=== PATIENT | female | born 1985 | race Caucasian/White ===

== ENCOUNTER 2017-05-14 11:54 | Emergency (ER) | payer MEDICAID, SELFPAY ==
[2017-05-14 12:07] VITALS: BP 113/85; PULSE 87; RESP 20; TEMP 36.3; O2SAT 99; BMI 37.5
[2017-05-14 12:11] LABS: UTC Pregnancy Test, Urine Negative (Negative)
[2017-05-14 12:11] LABS: Apearance,Urine Clear (Clear); Bilirubin,Urine Negative (Negative); Blood, Urine Negative (Negative); Color,Urine Yellow (Yellow); Glucose,Urine (UA) Negative (Negative); Ketones,Urine Negative (Negative); Protein,Urine Negative (Negative); Specific Gravity, Urine 1.005 (1.005-1.030); UTC Leukocyte Esterase,Urine 1+ (Negative); UTC Nitrate,Urine Negative (Negative); Urobilinogen,Urine 0.2 EU/dl (0.2)
--- NOTE | 2017-05-14 12:19 | XR_ITS ---
XR chest 2V HISTORY: Acute bronchitis, right-sided chest pain, pain when breathing ITS.REASON: PAIN WHEN BREATHING ORDERING PHYSICIAN: Haley Veloz PATIENT AGE: 31 years COMPARISON: None available FINDINGS: The cardiomediastinal silhouette and pulmonary vascularity are within normal limits. The lungs are clear without infiltrates, suspicious nodules, or pleural effusions. No acute bony abnormalities. IMPRESSION: Negative chest, no acute finding
--- NOTE | 2017-05-14 12:32 | HMH.EDUTC ---
[facility] [place] Disposition Clinical Impression: Acute bronchitis Qualifiers: Bronchitis organism: unspecified organism Qualified Code(s): J20.9 - Acute bronchitis, unspecified Muscle strain of left upper back Qualifiers: Encounter type: initial encounter Qualified Code(s): S29.012A - Strain of muscle and tendon of back wall of thorax, initial encounter Disposition: Home, Self-Care Condition on Discharge: Good Instructions: DI for Acute Bronchitis, DI for Back Strain or Sprain Additional Instructions: * STOP SMOKING!!!! * start antibiotic today. Be sure to complete entire prescription even if feeling better. * Monitor Temp. Follow up if fever develops * humidifier/vaporizer/hot steamy shower * Mucinex during the day for your cough and cough suppressant only at night. Be sure to drink lots of water. Insurance may not cover a prescription of mucinex. Might be cheaper to get 400mg tablets and take 2 tablets morning, midday and evening all with lots of water. * Promethazine DM cough syrup will cause drowsiness. Use it only at night. No driving, operating machinery or caring for small children after taking it. * Start steroid today. Helps with inflammation therefore, cough and back pain. Rvwd side effects. Pt reports they have taken them before. * Ice x15-20 mins 3-4 times a day for first 48 hours after the initial injury followed by moist heat x15-20 mins 3-4 times a day to affected area * Keep this area active. No movement leads to more stiffness. However, take it easy too and avoid heavy lifting, pushing, pulling. * Urine was sent for urine culture due to small amount of leuks. Be sure to follow up in 48-72 hours for results. If bacteria present, you will need a different antibiotic that treats it. I know you don't have a primary care doctor so we have provided you with a list of providers accepting patients. I would encourage you find a new primary care provider and make an appt ASIM as it can take weeks to get a new patient appointment. In the meantime, follow up in the clinic or ER for new, worsening AND in 48-72 hours for repeat evaluation and to check on urine culture.. Prescriptions: Azithromycin [Z-Pedro Pablo 250mg Tab] 250 mg PO UD DOSE PK #6 tab predniSONE [Prednisone 20mg Tab] 20 mg PO BID #10 tab Promethazine/Dextromethorphan [Promethazine-Dm Syrup] 5 - 10 ml PO HS PRN #90 ml PRN Reason: Cough Forms: Work/School Release Time of Disposition: 13:30 Medical Decision Making Vital Signs: 05/14/17 12:07 Temperature 97.4 F L Temperature Source Temporal Artery Scan Pulse Rate [Right Radial] 87 Respiratory Rate 20 Blood Pressure [Right Arm] 113/85 Blood Pressure Mean [Right Arm] 94 02 Sat by Pulse Oximetry 99 Oxygen Delivery Method Room Air - Lab Data Lab results reviewed: Yes: I reviewed the patient's lab results. Lab Results 05/14/17 11:58: Urine Color Yellow, Urine Appearance Clear, Urine pH 6.0, Ur Specific [place] 1.005, Urine Protein Negative, Urine Glucose (UA) Negative, Urine Ketones Negative, Urine Blood Negative, Urine Nitrate Negative, Urine Bilirubin Negative, Urine Urobilinogen 0.2, Ur Leukocyte Esterase 1+ A 05/14/17 11:59: [facility] Negative 05/14/17 12:20: Influenza Type A Ag Negative, Influenza Type B Ag Negative 05/14/17 12:25: WBC 7.7, RBC 4.21, Hgb 14.0, Hct 39.6, MCV 94.2, MCH 33.3 H, MCHC 35.3, RDW 13.4, Plt Count 216, MPV 9.0, Neut % (Auto) 52.4, Lymph % (Auto) 34.2, [place] % (Auto) 5.2, Eos % (Auto) 7.8, Baso % (Auto) 0.5, Neut # (Auto) 4.1, Lymph # (Auto) 2.7, [place] # (Auto) 0.4, Eos # (Auto) 0.6 H, Baso # (Auto) 0.0 05/14/17 12:25: Sodium 137, Potassium 3.7, Chloride 104, Carbon Dioxide 23, Anion Gap 13.7, BUN 8, Creatinine 0.75, Estimated Creat Clear 190, Estimated GFR 91, Est GFR ( Amer) 111, Glucose 114 H Result diagrams: 05/14/17 12:25 05/14/17 12:25 Orders (Tests/Meds): ED MEDICATIONS Discontinued Medications Generic Name Dose Route Start Last Admin Trade Name Alverto
--- NOTE | 2017-05-14 12:36 | ED_ITS ---
[facility] [place] Clinical Impression: Acute bronchitis Qualifiers: Bronchitis organism: unspecified organism Qualified Code(s): J20.9 - Acute bronchitis, unspecified Muscle strain of left upper back Qualifiers: Encounter type: initial encounter Qualified Code(s): S29.012A - Strain of muscle and tendon of back wall of thorax, initial encounter Disposition: Home, Self-Care Condition on Discharge: Good Instructions: DI for Acute Bronchitis, DI for Back Strain or Sprain Additional Instructions: * STOP SMOKING!!!! * start antibiotic today. Be sure to complete entire prescription even if feeling better. * Monitor Temp. Follow up if fever develops * humidifier/vaporizer/hot steamy shower * Mucinex during the day for your cough and cough suppressant only at night. Be sure to drink lots of water. Insurance may not cover a prescription of mucinex. Might be cheaper to get 400mg tablets and take 2 tablets morning, midday and evening all with lots of water. * Promethazine DM cough syrup will cause drowsiness. Use it only at night. No driving, operating machinery or caring for small children after taking it. * Start steroid today. Helps with inflammation therefore, cough and back pain. Rvwd side effects. Pt reports they have taken them before. * Ice x15-20 mins 3-4 times a day for first 48 hours after the initial injury followed by moist heat x15-20 mins 3-4 times a day to affected area * Keep this area active. No movement leads to more stiffness. However, take it easy too and avoid heavy lifting, pushing, pulling. * Urine was sent for urine culture due to small amount of leuks. Be sure to follow up in 48-72 hours for results. If bacteria present, you will need a different antibiotic that treats it. I know you don't have a primary care doctor so we have provided you with a list of providers accepting patients. I would encourage you find a new primary care provider and make an appt ASIM as it can take weeks to get a new patient appointment. In the meantime, follow up in the clinic or ER for new, worsening AND in 48-72 hours for repeat evaluation and to check on urine culture.. Prescriptions: Azithromycin [Z-Pedro Pablo 250mg Tab] 250 mg PO UD DOSE PK #6 tab predniSONE [Prednisone 20mg Tab] 20 mg PO BID #10 tab Promethazine/Dextromethorphan [Promethazine-Dm Syrup] 5 - 10 ml PO HS PRN #90 ml PRN Reason: Cough Forms: Work/School Release Time of Disposition: 13:30 Medical Decision Making Vital Signs: 05/14/17 12:07 Temperature 97.4 F L Temperature Source Temporal Artery Scan Pulse Rate [Right Radial] 87 Respiratory Rate 20 Blood Pressure [Right Arm] 113/85 Blood Pressure Mean [Right Arm] 94 02 Sat by Pulse Oximetry 99 Oxygen Delivery Method Room Air - Lab Data Lab results reviewed: Yes: I reviewed the patient's lab results. Lab Results 05/14/17 11:58: Urine Color Yellow, Urine Appearance Clear, Urine pH 6.0, Ur Specific [place] 1.005, Urine Protein Negative, Urine Glucose (UA) Negative, Urine Ketones Negative, Urine Blood Negative, Urine Nitrate Negative, Urine Bilirubin Negative, Urine Urobilinogen 0.2, Ur Leukocyte Esterase 1+ A 05/14/17 11:59: [facility] Negative 05/14/17 12:20: Influenza Type A Ag Negative, Influenza Type B Ag Negative 05/14/17 12:25: WBC 7.7, RBC 4.21, Hgb 14.0, Hct 39.6, MCV 94.2, MCH 33.3 H, MCHC 35.3, RDW 13.4, Plt Count 216, MPV 9.0, Neut % (Auto) 52.4, Lymph % (Auto) 34.2, [place] % (Auto) 5.2, Eos % (Auto) 7.8, Baso % (Auto) 0.5, Neut # (Auto) 4.1 , Lymph # (Auto) 2.7, [place] # (Auto) 0.4, Eos # (Auto) 0.6 H, Baso # (Auto)
[2017-05-14 12:43] LABS: Basophils % 0.5 % (0.1-2.0); Eosinophils # 0.6 K/mm3 (0.0-0.4); Eosinophils % 7.8 % (0.1-12.0); Hematocrit 39.6 % (37.0-47.0); Lymphocytes # 2.7 K/mm3 (0.7-4.5); Lymphocytes % 34.2 K/mm3 (10-50); Mean Corpuscular HGB Conc 35.3 g/dL (31.8-35.4); Mean Corpuscular Hemoglobin 33.3 pg (27.0-31.2); Mean Corpuscular Volume 94.2 fl (81-99); Monocytes # 0.4 K/mm3 (0.1-1.0); Monocytes % 5.2 % (1.7-9.3); Neutrophils # 4.1 K/mm3 (1.8-7.8); Neutrophils % 52.4 % (37.0-80.0); Platelet Count 216 K/mm3 (142-424); Red Blood Count 4.21 M/mm3 (4.20-5.40); Red Cell Distribution Width 13.4 % (11.5-17.5); White Blood Count 7.7 K/mm3 (4.8-10.8)
[2017-05-14 12:52] LABS: Anion Gap 13.7 mEq/L (5-15); Blood Urea Nitrogen 8 mg/dL (7-18); Carbon Dioxide 23 mmol/L (21.0-32.0); Chloride 104 mmol/L (98-107); Creatinine Clearance Estimated 190 mL/min (0-300); Creatinine,Serum 0.75 mg/dL (0.55-1.02); Estimated Glomerular Filt Rate 91 ml/min (>60); GFR (African American) 111 ML/MIN (>60); Glucose 114 mg/dL (74-106); Potassium 3.7 mmoL/L (3.5-5.1); Sodium 137 mmol/L (136-145)
[2017-05-14 12:54] LABS: UTC Influenza A Antigen Negative (Negative); UTC Influenza B Antigen Negative (Negative)
[2017-05-14 13:31] VITALS: BP 127/77; PULSE 67; RESP 22; TEMP 36.9; O2SAT 97
== END 2017-05-14 13:33 | disposition home or self-care (01) ==
PROVIDERS: Emergency Provider Nurse Practitioner Family; Family Provider Family Medicine
DX: J20.9 Acute bronchitis, unspecified (principal); S29.012A Strain of muscle and tendon of back wall of thorax, initial encounter; F17.210 Nicotine dependence, cigarettes, uncomplicated
CPT/HCPCS: 71046; 80048; 81003; 81025; 85025; 87086; 87804; 96372; 99202

== ENCOUNTER 2017-05-26 09:27 | Emergency (ER) | payer MEDICAID, SELFPAY ==
[2017-05-26 09:41] VITALS: BP 129/78; PULSE 90; RESP 18; TEMP 36.6; O2SAT 99; BMI 39.1
--- NOTE | 2017-05-26 09:54 | HMH.EDUTC ---
[facility] [place] Clinical Impression: Sinusitis Qualifiers: Sinusitis location: other Chronicity: unspecified Qualified Code(s): J32.9 - Chronic sinusitis, unspecified Disposition: Home, Self-Care Condition on Discharge: Good Instructions: Sinusitis, Sinus Headache, DI for Sinusitis Additional Instructions: Start antibiotic. Sinus infections may take 2-3 days to notice much improvement so be sure to use conservative measures as discussed for symptoms Flonase 2 spray in each nostril daily to help with nasal congestion, sinus an ear pressure/inflammation Lots of Fluids Sleep elevated Humidifer/vaporizer Augmentin can cause GI effects. Probiotics may help to prevent these symptoms Prescriptions: Promethazine/Dextromethorphan [Promethazine-Dm Syrup] 5 ml PO Q4HP PRN #350 ml MDD 30ML/DAY PRN Reason: Cough Amoxicillin/Potassium Clav [Augmentin 875-125 Tablet] 1 tab PO Q12H #14 tab Fluticasone Propionate [Flonase 50mcg nasal spray 16gm] 2 spr NS DAILY #1 bottle predniSONE [Prednisone 20mg Tab] 20 mg PO BID #10 tab Forms: Work/School Release Time of Disposition: 10:02 Medical Decision Making - Medical Records Medical records reviewed: Yes: I reviewed the patient's medical records. Vital Signs: 05/26/17 09:41 Temperature 98 F Temperature Source Temporal Artery Scan Pulse Rate [Right] 90 Respiratory Rate 18 Blood Pressure [Right Arm] 129/78 Blood Pressure Mean [Right Arm] 95 Blood Pressure Source [Right Arm] Automatic Cuff Blood Pressure Position [Right Arm] Sitting 02 Sat by Pulse Oximetry 99 Oxygen Delivery Method Room Air - Lab Data Lab results reviewed: Yes: I reviewed the patient's lab results. - Charly Inquiry Pt receiving controlled substance: No Charly was queried for this patient: No [facility] [place] HPI - General Stated complaint: cough congestion sore throat Mode of Arrival: Ambulatory Source of Information: Patient Limitations: No Limitations Description of Symptoms (Recalled from Triage Doc. by RN): COUGH, CONGESTION SORE THROAT HEENT Symptoms (Recalled from RN notes): Yes Resp Symptoms (Recalled from RN notes): No Skin Symptoms (Recalled from RN notes): No MS Symptoms (Recalled from RN notes): No Functional Status (Recalled from RN notes): N - History of Present Illness Provider Complaint: Patient states that she has been having cough, nasal congestion, sore throat and sinus pain and pressure State that she feels pressure behind her eyes and had a sinus headachce. State that she had bronchitits about a month ago States that her cough is dry like there is something draining down her throat - Related Data Previous Rx's Medication Instructions Recorded Azithromycin [Z-Pedro Pablo 250mg Tab] 250 mg PO UD DOSE PK #6 tab 05/14/17 Promethazine/Dextromethorphan 5 - 10 ml PO HS PRN #90 ml 05/14/17 [Promethazine-Dm Syrup] predniSONE [Prednisone 20mg 20 mg PO BID #10 tab 05/14/17 Tab] Amoxicillin/Potassium Clav 1 tab PO Q12H #14 tab 05/26/17 [Augmentin 875-125 Tablet] Fluticasone Propionate [Flonase 2 spr NS DAILY #1 bottle 05/26/17 50mcg nasal spray 16gm] Promethazine/Dextromethorphan 5 ml PO Q4HP PRN #350 ml MDD 05/26/17 [Promethazine-Dm Syrup] 30ML/DAY predniSONE [Prednisone 20mg 20 mg PO BID #10 tab 05/26/17 Tab] Allergies Allergy/AdvReac Type Severity Reaction Status Date / Time No Known Allergies Allergy Verified 05/14/17 12:10 - Worker's Comp Is this a Worker's Comp case?: No [facility] History I have reviewed the patient's past medical history: Yes Medical History: Denies:: Cancer, Diabetes Mellitus Type 1, Diabetes Mellitus Type 2, Hypertension, Kidney Stones, MRSA Other Surgeries: Yes: Tubal Ligation, Other (cholecystectomy) Amputation: No - Social History Smoking Status: Current every day smoker Tobacco Type: cigarettes Alcohol Intake: never - Psychiatric History Expresses thoughts of harming self/others: None Suicide Plan Description: No Plan ROS O
--- NOTE | 2017-05-26 09:57 | ED_ITS ---
[facility] [place] Impression: Sinusitis Qualifiers: Sinusitis location: other Chronicity: unspecified Qualified Code(s): J32.9 - Chronic sinusitis, unspecified Disposition: Home, Self-Care Condition on Discharge: Good Instructions: Sinusitis, Sinus Headache, DI for Sinusitis Additional Instructions: Start antibiotic. Sinus infections may take 2-3 days to notice much improvement so be sure to use conservative measures as discussed for symptoms Flonase 2 spray in each nostril daily to help with nasal congestion, sinus an ear pressure/inflammation Lots of Fluids Sleep elevated Humidifer/vaporizer Augmentin can cause GI effects. Probiotics may help to prevent these symptoms Prescriptions: Promethazine/Dextromethorphan [Promethazine-Dm Syrup] 5 ml PO Q4HP PRN #350 ml MDD 30ML/DAY PRN Reason: Cough Amoxicillin/Potassium Clav [Augmentin 875-125 Tablet] 1 tab PO Q12H #14 tab Fluticasone Propionate [Flonase 50mcg nasal spray 16gm] 2 spr NS DAILY #1 bottle predniSONE [Prednisone 20mg Tab] 20 mg PO BID #10 tab Forms: Work/School Release Time of Disposition: 10:02 Medical Decision Making - Medical Records Medical records reviewed: Yes: I reviewed the patient's medical records. Vital Signs: 05/26/17 09:41 Temperature 98 F Temperature Source Temporal Artery Scan Pulse Rate [Right] 90 Respiratory Rate 18 Blood Pressure [Right Arm] 129/78 Blood Pressure Mean [Right Arm] 95 Blood Pressure Source [Right Arm] Automatic Cuff Blood Pressure Position [Right Arm] Sitting 02 Sat by Pulse Oximetry 99 Oxygen Delivery Method Room Air - Lab Data Lab results reviewed: Yes: I reviewed the patient's lab results. - Charly Inquiry Pt receiving controlled substance: No Charly was queried for this patient: No [facility] [place] - General Stated complaint: cough congestion sore throat Mode of Arrival: Ambulatory Source of Information: Patient Limitations: No Limitations Description of Symptoms (Recalled from Triage Doc. by RN): COUGH, CONGESTION SORE THROAT HEENT Symptoms (Recalled from RN notes): Yes Resp Symptoms (Recalled from RN notes): No Skin Symptoms (Recalled from RN notes): No MS Symptoms (Recalled from RN notes): No Functional Status (Recalled from RN notes): N - History of Present Illness Provider Complaint: Patient states that she has been having cough, nasal congestion, sore throat and sinus pain and pressure State that she feels pressure behind her eyes and had a sinus headachce. State that she had bronchitits about a month ago States that her cough is dry like there is something draining down her throat - Related Data Previous Rx's Medication Instructions Recorded Azithromycin [Z-Pedro Pablo 250mg Tab] 250 mg PO UD DOSE PK #6 tab 05/14/17 Promethazine/Dextromethorphan 5 - 10 ml PO HS PRN #90 ml 05/14/17 [Promethazine-Dm Syrup] predniSONE [Prednisone 20mg 20 mg PO BID #10 tab 05/14/17 Tab] Amoxicillin/Potassium Clav 1 tab PO Q12H #14 tab 05/26/17 [Augmentin 875-125 Tablet] Fluticasone Propionate [Flonase 2 spr NS DAILY #1 bottle 05/26/17 50mcg nasal spray 16gm] Promethazine/Dextromethorphan 5 ml PO Q4HP PRN #350 ml MDD 05/26/17 [Promethazine-Dm Syrup] 30ML/DAY predniSONE [Prednisone 20mg 20 mg PO BID #10 tab 05/26/17 Tab] Allergies Allergy/AdvReac Type Severity Reaction S
[2017-05-26 10:08] VITALS: BP 129/78; PULSE 90; RESP 18; TEMP 36.6
[2017-05-26 10:22] LABS: UTC Influenza A Antigen Negative (Negative); UTC Influenza B Antigen Negative (Negative); UTC Strep Screen (Rapid) Negative (Negative)
== END 2017-05-26 10:09 | disposition home or self-care (01) ==
PROVIDERS: Emergency Provider Nurse Practitioner; Family Provider Family Medicine
DX: J32.9 Chronic sinusitis, unspecified (principal); F17.210 Nicotine dependence, cigarettes, uncomplicated
CPT/HCPCS: 87804; 87880; 99203

== ENCOUNTER 2017-06-19 12:54 | Emergency (ER) | payer MEDICAID, SELFPAY ==
[2017-06-19 12:57] VITALS: BP 126/61; PULSE 83; RESP 20; TEMP 36.6; O2SAT 99; BMI 39.1
--- NOTE | 2017-06-19 13:23 | HMH.EDABDPAI ---
ED Disposition Clinical Impression: Pelvic infection Disposition: Home, Self-Care Condition on Discharge: Good Instructions: DI for Acute Abdomen Prescriptions: Azithromycin [Azithromycin 500mg Tab] 500 mg PO DAILY 1 Days #2 tab Ketorolac Tromethamine [Toradol 10mg tablet] 10 mg PO Q4H 5 Days #30 tab - Critical Care Critical Care Time: No Attestation: On 06/19/17, the high probability of a clinically significant, sudden or life threatening deterioration of the following system(s) required my full and direct attention, intervention and personal management. The time I documented below is in addition to time spent performing reported procedures but includes the following listed in this critical care notation. Medical Decision Making - Charly Inquiry Pt receiving controlled substance: No Charly was queried for this patient: No Vital Signs: 06/19/17 12:57 06/19/17 14:14 06/19/17 15:30 Temperature 97.8 F 98.1 F 98.2 F Temperature Source Oral Oral Oral Pulse Rate [Right Radial] 83 87 91 H Respiratory Rate 20 18 20 Blood Pressure [Right Arm] 126/61 126/77 118/79 Blood Pressure Mean [Right Arm] 82 93 92 Blood Pressure Source [Right Arm] Automatic Cuff Automatic Cuff Automatic Cuff Blood Pressure Position [Right Arm] Sitting Sitting Standing 02 Sat by Pulse Oximetry 99 97 98 Oxygen Delivery Method Room Air Room Air Room Air - Lab Data Lab Results 06/19/17 13:50: Urine Color Yellow, Urine Appearance Clear, Urine pH 5.5, Ur Specific [place] 1.020, Urine Protein Negative, Urine Glucose (UA) Negative, Urine Ketones Negative, Urine Blood Negative, Urine Nitrate Negative, Urine Bilirubin Negative, Urine Urobilinogen 0.2, Ur Leukocyte Esterase Negative, Urine RBC None, Urine WBC None, Ur Squamous Epith Cells 5-10, Urine Bacteria Trace 06/19/17 13:50: Urine HCG, Qual Negative 06/19/17 14:00: WBC 7.7, RBC 4.16 L, Hgb 13.8, Hct 39.7, MCV 95.4, MCH 33.0 H, MCHC 34.6, RDW 13.3, Plt Count 208, MPV 9.3, Neut % (Auto) 53.7, Lymph % (Auto) 35.8, [place] % (Auto) 5.1, Eos % (Auto) 5.1, Baso % (Auto) 0.2, Neut # (Auto) 4.1, Lymph # (Auto) 2.8, [place] # (Auto) 0.4, Eos # (Auto) 0.4, Baso # (Auto) 0.0 06/19/17 14:00: Sodium 139, Potassium 3.7, Chloride 104, Carbon Dioxide 28, Anion Gap 10.7, BUN 10, Creatinine 0.76, Estimated Creat Clear 196, Estimated GFR 90, Est GFR ( Amer) 109, Glucose 98, Calcium 9.4, Total Bilirubin 0.2, AST 12 L, ALT 22, Alkaline Phosphatase 87, Total Protein 7.7, Albumin 4.0, Globulin 3.7 H, Albumin/Globulin Ratio 1.1, Amylase 39, Lipase 100 Result diagrams: 06/19/17 14:00 06/19/17 14:00 Orders (Tests/Meds): ED MEDICATIONS Discontinued Medications Generic Name Dose Route Start Last Admin Trade Name Freq PRN Reason Stop Dose Admin Ketorolac Tromethamine 15 mg 06/19/17 14:47 06/19/17 14:47 Toradol 30mg/Ml Vial IV 06/19/17 14:48 15 mg ONCE ONE Administration ORDERS Category Date Time Status US pelvis (no fetus) Stat Exams 06/19/17 15:27 Ordered - US Data US Images: Pelvis ED US Reviewed: Yes: I have reviewed the patient's US results Findings Narrative: lerft sided 1.8 cm ovarian cyst with no fluid and no lesion on right Abdominal Pain HPI - General Chief Complaint: Abdominal Pain Stated Complaint: lower right side pain Time Seen by Provider: 06/19/17 13:45 Mode of Arrival: Ambulatory Source of Information: Patient Limitations: No Limitations Description of Symptoms (Recalled from ER Triage Doc. by RN): REPORTS RLQ/PELVIC PAIN SINCE 1100. REPORTS PAIN AN INTERMITTENT BURNING/STABBING PAIN AND RATES PAIN AT A 10 - History of Present Illness MD complaint: abdominal pain Onset (ago): hour(s) (2) Location: LLQ, RLQ Severity: moderate Quality: cramping, stabbing Radiation: none Migration to: no migration Exacerbating factors: nothing - Related Data Previous Rx's Medication Instructions Recorded Azithromycin [Azithromycin 500mg 500 mg PO DAILY 1 D
[2017-06-19 13:54] LABS: Microscopic, Urine URINE MICROSCOPIC (MICROSCOPIC)
[2017-06-19 13:59] LABS: Appearance,Urine CLEAR (Clear); Bilirubin,Urine Negative (Negative); Blood, Urine Negative (Negative); Color,Urine YELLOW (Yellow); Glucose,Urine (UA) Negative (Negative); Ketones,Urine Negative (Negative); Leukocyte Esterase,Urine Negative (Negative); Nitrate,Urine Negative (Negative); PH,Urine 5.5 (5.0-8.5); Protein,Urine Negative (Negative); Urobilinogen,Urine 0.2 EU/dl (0.2)
[2017-06-19 14:03] LABS: Urine Pregnancy, HCG Qual. Negative (Negative)
[2017-06-19 14:07] LABS: Bacteria,Urine Trace /lpf
[2017-06-19 14:14] VITALS: BP 126/77; PULSE 87; RESP 18; TEMP 36.7; O2SAT 97
[2017-06-19 14:19] LABS: Basophils % 0.2 % (0.1-2.0); Eosinophils # 0.4 K/mm3 (0.0-0.4); Eosinophils % 5.1 % (0.1-12.0); Hematocrit 39.7 % (37.0-47.0); Hemoglobin 13.8 g/dL (12.2-16.2); Lymphocytes # 2.8 K/mm3 (0.7-4.5); Lymphocytes % 35.8 K/mm3 (10-50); Mean Corpuscular HGB Conc 34.6 g/dL (31.8-35.4); Mean Corpuscular Volume 95.4 fl (81-99); Mean Platelet Volume 9.3 fl (7.4-10.4); Monocytes # 0.4 K/mm3 (0.1-1.0); Monocytes % 5.1 % (1.7-9.3); Neutrophils # 4.1 K/mm3 (1.8-7.8); Neutrophils % 53.7 % (37.0-80.0); Platelet Count 208 K/mm3 (142-424); Red Blood Count 4.16 M/mm3 (4.20-5.40); Red Cell Distribution Width 13.3 % (11.5-17.5); White Blood Count 7.7 K/mm3 (4.8-10.8)
[2017-06-19 14:26] LABS: Alanine Aminotransferase 22 U/L (12-78); Albumin/Globulin Ratio 1.1 (1.1-1.8); Alkaline Phosphatase 87 U/L (46-116); Amylase 39 U/L (25-125); Anion Gap 10.7 mEq/L (5-15); Aspartate Amino Transferase 12 U/L (15-37); Bilirubin,Total 0.2 mg/dL (0.2-1.0); Blood Urea Nitrogen 10 mg/dL (7-18); Calcium 9.4 mg/dL (8.5-10.1); Carbon Dioxide 28 mmol/L (21.0-32.0); Chloride 104 mmol/L (98-107); Creatinine Clearance Estimated 196 mL/min (0-300); Creatinine,Serum 0.76 mg/dL (0.55-1.02); Estimated Glomerular Filt Rate 90 ml/min (>60); GFR (African American) 109 ML/MIN (>60); Globulin 3.7 gm/dl (1.3-3.2); Glucose 98 mg/dL (74-106); Lipase 100 u/L (73-393); Potassium 3.7 mmoL/L (3.5-5.1); Sodium 139 mmol/L (136-145); Total Protein,Serum 7.7 gm/dL (6.4-8.2)
--- NOTE | 2017-06-19 14:30 | PC.NURSE ---
PELVIC EXAM PERFORMED PER DR PEDROZA WITH ASSISSTANCE OF T JUSTICE
--- NOTE | 2017-06-19 15:27 | US_ITS ---
US transvaginal HISTORY: Right lower quadrant pain with irregular cycles ITS.REASON: pain ORDERING PHYSICIAN: James Leong MD PATIENT AGE: 31 years COMPARISON: None FINDINGS: The uterus measures 7. 4 x 4 x 4.3 cm. Combined endometrial thickness is 1 cm. No uterine mass evident. Left ovary is 3 x 2.4 cm and contains a 1.8 cm cyst and other small follicles. The right ovary is 3 x 1.9 cm and contains small follicles. No cul-de-sac fluid evident. IMPRESSION: 1.8 cm left ovarian cyst with small bilateral ovarian follicles. Endometrial thickness upper limits of normal.
[2017-06-19 15:30] VITALS: BP 118/79; PULSE 91; RESP 20; TEMP 36.8; O2SAT 98
[2017-06-19 16:22] VITALS: BP 133/69; PULSE 80; RESP 20; TEMP 36.8; O2SAT 98
[2017-06-24 16:32] LABS: Neisseria gonorrhoeae, NAA Negative (Negative)
== END 2017-06-19 16:24 | disposition home or self-care (01) ==
PROVIDERS: Emergency Provider Family Medicine; Family Provider Family Medicine
DX: N83.202 Unspecified ovarian cyst, left side (principal); F17.210 Nicotine dependence, cigarettes, uncomplicated
CPT/HCPCS: 76830; 80053; 81001; 81025; 82150; 83690; 85025; 87210; 87220; 87491; 87591; 96374; 99283

== ENCOUNTER → 2017-08-21 12:42 | Outpatient (CLI) | payer MEDICAID, SELFPAY ==
--- NOTE | 2017-08-21 12:44 | US_ITS ---
US transvaginal HISTORY: Follow-up ovarian cysts ITS.REASON: ovarian cysts ORDERING PHYSICIAN: Mohit Wynn MD PATIENT AGE: 31 years Comparison: 06/19/2017 FINDINGS: Uterus has an unremarkable appearance measuring 7 x 4 x 4.5 cm. Combined endometrial thickness is 7 mm. No uterine mass. The left ovary is 2.4 x 2.3 cm and contains small follicles the largest at 8 mm. Previously there was a 1.8 cm left ovarian cyst no longer apparent or smaller The right ovary is 3.4 x 2.3 cm and also contains small follicles the largest at 1 cm. The right ovary has a polycystic appearance. No cul-de-sac fluid. There is bilateral ovarian blood flow noted. IMPRESSION: 1. Decrease in size of left ovarian cyst with the largest cyst on the left now an 8 mm. 2. Polycystic appearance of the right ovary
== END ==
PROVIDERS: Family Provider Family Medicine; PCP Family Medicine; Visit Provider Obstetrics & Gynecology
DX: N83.209 Unspecified ovarian cyst, unspecified side (principal)
CPT/HCPCS: 76830

== ENCOUNTER 2019-09-15 23:06 | Emergency (ER) | payer MEDICAID, SELFPAY ==
[2019-09-15 23:16] VITALS: BP 120/83; PULSE 110; RESP 16; TEMP 37.7; O2SAT 100; BMI 37.5
[2019-09-15 23:41] LABS: Basophils % 0.4 % (0.1-2.0); Eosinophils # 0.6 K/mm3 (0.0-0.4); Eosinophils % 5.2 % (0.1-12.0); Hematocrit 36.6 % (37.0-47.0); Hemoglobin 12.9 g/dL (12.2-16.2); Lymphocytes % 25.3 % (10-50); Mean Corpuscular HGB Conc 35.2 g/dL (31.8-35.4); Mean Corpuscular Hemoglobin 32.7 pg (27.0-31.2); Mean Platelet Volume 10.5 fl (7.4-10.4); Monocytes # 0.6 K/mm3 (0.1-1.0); Monocytes % 5.4 % (1.7-9.3); Neutrophils # 7.5 K/mm3 (1.8-7.8); Neutrophils % 63.7 % (37.0-80.0); Platelet Count 215 K/mm3 (142-424); Red Blood Count 3.93 M/mm3 (4.20-5.40); Red Cell Distribution Width 14.6 % (11.5-17.5); White Blood Count 11.8 K/mm3 (4.8-10.8)
[2019-09-15 23:44] VITALS: BP 123/83; PULSE 99; RESP 18; TEMP 38.1; O2SAT 99
[2019-09-15 23:47] LABS: Chloride 104 mmol/L (98-107); Potassium 3.4 mmoL/L (3.5-5.1); Sodium 138 mmol/L (136-145)
[2019-09-15 23:49] LABS: Alanine Aminotransferase 24 U/L (12-78); Aspartate Amino Transferase 25 U/L (14-36); Blood Urea Nitrogen 5 mg/dl (7-17); Creatinine Clearance Estimated 156 mL/min (50-200); Estimated Glomerular Filt Rate 73 ml/min (>60); GFR (African American) 88 ML/MIN (>60)
[2019-09-15 23:50] LABS: Albumin Level 4.6 g/dl (3.5-5.0); Albumin/Globulin Ratio 1.3 (1.1-1.8); Alkaline Phosphatase 90 U/L (38-126); Anion Gap 13.4 mEq/L (5-15); Bilirubin,Total 0.5 mg/dl (0.2-1.3); Carbon Dioxide 24 mmol/L (22.0-30.0); Globulin 3.5 g/dL (1.3-3.2); Glucose 93 mg/dl (74-100); Total Protein,Serum 8.1 g/dl (6.3-8.2)
[2019-09-15 23:55] LABS: C-Reactive Protein 21.8 mg/L (0-4)
[2019-09-16 00:15] VITALS: BP 131/84; PULSE 93; RESP 18; O2SAT 99
[2019-09-16 00:30] LABS: Erythrocyte Sedimentation Rate 48 mm/hr (0-20)
--- NOTE | 2019-09-16 00:38 | HMH.EDSKAF ---
ED Disposition Clinical Impression: Cellulitis Qualifiers: Site of cellulitis: extremity Site of cellulitis of extremity: upper extremity Laterality: right Qualified Code(s): L03.113 - Cellulitis of right upper limb Disposition: Home, Self-Care Condition on Discharge: Good Instructions: Cellulitis Additional Instructions: keep clean and use meds and call your dr about culture results Prescriptions: cephALEXin [Keflex 500mg Cap] 500 mg PO TID #30 cap Transmission Status: Pending to [id number] Minocycline HCl [Minocycline HCl 100mg Tab*] 100 mg PO BID #20 tab Transmission Status: Pending to [id number] Referrals: DuranViral [Primary Care Provider] - - Critical Care Critical Care Time: No Attestation: On 09/15/19, the high probability of a clinically significant, sudden or life threatening deterioration of the following system(s) required my full and direct attention, intervention and personal management. The time I documented below is in addition to time spent performing reported procedures but includes the following listed in this critical care notation. Medical Decision Making - Medical Records Medical records reviewed: Yes: I reviewed the patient's medical records. - Charly Inquiry Pt receiving controlled substance: No Vital Signs: 09/15/19 23:16 09/15/19 23:44 09/16/19 00:15 Temperature 99.8 F H 100.5 F H Temperature Source Oral Oral Pulse Rate [Right] 110 H 99 H 93 H Respiratory Rate 16 18 18 Blood Pressure [Right Arm] 120/83 123/83 131/84 Blood Pressure Mean [Right Arm] 95 96 99 Blood Pressure Source [Right Arm] Automatic Cuff Automatic Cuff Automatic Cuff Blood Pressure Position [Right Arm] Sitting Supine Supine 02 Sat by Pulse Oximetry 100 99 99 Oxygen Delivery Method Room Air Room Air Room Air 09/16/19 01:00 Temperature 99.4 F Temperature Source Oral Pulse Rate [Right] 88 Respiratory Rate 18 Blood Pressure [Right Arm] 116/80 Blood Pressure Mean [Right Arm] 92 Blood Pressure Source [Right Arm] Automatic Cuff Blood Pressure Position [Right Arm] Supine 02 Sat by Pulse Oximetry 98 Oxygen Delivery Method Room Air - Lab Data Lab results reviewed: Yes: I reviewed the patient's lab results. Lab Results 09/15/19 23:30: WBC 11.8 H, RBC 3.93 L, Hgb 12.9, Hct 36.6 L, MCV 93.0, MCH 32.7 H, MCHC 35.2, RDW 14.6, Plt Count 215, MPV 10.5 H, Neut % (Auto) 63.7, Lymph % (Auto) 25.3, [place] % (Auto) 5.4, Eos % (Auto) 5.2, Baso % (Auto) 0.4, Neut # (Auto) 7.5, Lymph # (Auto) 3.0, [place] # (Auto) 0.6, Eos # (Auto) 0.6 H, Baso # (Auto) 0.0, ESR 48 H 09/15/19 23:30: Sodium 138, Potassium 3.4 L, Chloride 104, Carbon Dioxide 24, Anion Gap 13.4, BUN 5 L, Creatinine 0.90, Estimated Creat Clear 156, Estimated GFR 73, Est GFR ( Amer) 88, Glucose 93, Calcium 9.0, Total Bilirubin 0.5, AST 25, ALT 24, Alkaline Phosphatase 90, C-Reactive Protein 21.8 H, Total Protein 8.1, Albumin 4.6, Globulin 3.5 H, Albumin/Globulin Ratio 1.3 Result diagrams: 09/15/19 23:30 09/15/19 23:30 Orders (Tests/Meds): ED MEDICATIONS Generic Name Dose Route Start Last Admin Trade Name Freq PRN Reason Stop Dose Admin Sodium Chloride 1,000 mls @ 999 mls/hr 09/15/19 23:30 09/15/19 23:36 Sod Chlor 0.9% 1000ml Bag IV 09/16/19 00:30 999 mls/hr .Q1H1M CECELIA Administration Vancomycin HCl 2,000 mg/ 250 mls @ 125 mls/hr 09/16/19 00:38 09/16/19 00:59 Sodium Chloride IV 09/16/19 02:37 125 mls/hr ONCE ONE Administration Protocol Discontinued Medications Generic Name Dose Route Start Last Admin Trade Name Freq PRN Reason Stop Dose Admin Ketorolac Tromethamine 30 mg 09/15/19 23:25 09/15/19 23:35 Toradol 30mg/Ml Vial IV 09/15/19 23:26 30 mg ONCE ONE Administration ORDERS Category Date Time Status Wound Culture and Gram Stain Stat Micro 09/16/19 00:35 Received Skin/Abscess/FB HPI - General Chief complaint: Skin/Abscess/Foreign Body Stated complaint: red spots under
--- NOTE | 2019-09-16 00:41 | PC.NURSE ---
Vanco dosing verified by Theo in Pharmacy
[2019-09-16 01:00] VITALS: BP 116/80; PULSE 88; RESP 18; TEMP 37.4; O2SAT 98
[2019-09-16 01:59] VITALS: BP 116/83; PULSE 81; RESP 18; TEMP 36.6; O2SAT 99
[2019-09-16 03:16] VITALS: BP 129/90; PULSE 83; RESP 18; TEMP 37.2; O2SAT 100
[2019-09-16 03:26] VITALS: BP 109/62; PULSE 94; RESP 18; TEMP 37.2; O2SAT 97
== END 2019-09-16 03:35 | disposition home or self-care (01) ==
PROVIDERS: Emergency Provider Emergency Medicine; PCP Family Medicine
DX: L03.113 Cellulitis of right upper limb (principal); F33.1 Major depressive disorder, recurrent, moderate; F17.210 Nicotine dependence, cigarettes, uncomplicated; Z79.899 Other long term (current) drug therapy
CPT/HCPCS: 80053; 85025; 85651; 86140; 87070; 87077; 87186; 87205; 96365; 96367; 96375; 99283; J3370

== ENCOUNTER 2019-10-31 06:02 | Emergency (ER) | payer MEDICAID, SELFPAY ==
[2019-10-31 06:04] VITALS: BP 136/80; PULSE 93; RESP 16; TEMP 37.2; O2SAT 98; BMI 36.0
--- NOTE | 2019-10-31 06:29 | HMH.EDSKAF ---
ED Disposition Clinical Impression: Abscess of skin or subcutaneous tissue Qualifiers: Site of cutaneous abscess: extremity Site of cutaneous abscess of extremity: axilla Laterality: right Qualified Code(s): L02.411 - Cutaneous abscess of right axilla Disposition: Home, Self-Care Condition on Discharge: Good Instructions: DI for Skin Abscess Additional Instructions: warm compresses and see surg for follow up Prescriptions: Sulfamethoxazole/Trimethoprim [Bactrim DS tablet] 1 each PO BID #14 tab Transmission Status: [id number] Minocycline HCl [Minocycline HCl 100mg Tab*] 100 mg PO BID #20 tab Transmission Status: Pending to [id number] Ketorolac Tromethamine [Toradol 10mg tablet] 10 mg PO Q6H 3 Days #12 tab Transmission Status: [id number] Referrals: Parminder Garzon [Primary Care Provider] - Stew Osman MD [Staff Physician] - - Critical Care Critical Care Time: No Attestation: On 10/31/19, the high probability of a clinically significant, sudden or life threatening deterioration of the following system(s) required my full and direct attention, intervention and personal management. The time I documented below is in addition to time spent performing reported procedures but includes the following listed in this critical care notation. Medical Decision Making - Medical Records Medical records reviewed: Yes: I reviewed the patient's medical records. - Charly Inquiry Pt receiving controlled substance: No Vital Signs: 10/31/19 06:04 Temperature 99.0 F Temperature Source Oral Pulse Rate [Left Radial] 93 H Respiratory Rate 16 Blood Pressure [Right Arm] 136/80 Blood Pressure Mean [Right Arm] 98 Blood Pressure Source [Right Arm] Automatic Cuff Blood Pressure Position [Right Arm] Sitting 02 Sat by Pulse Oximetry 98 Oxygen Delivery Method Room Air - Lab Data Lab results reviewed: Yes: I reviewed the patient's lab results. Lab Results 10/31/19 06:25: WBC 12.0 H, RBC 3.93 L, Hgb 12.5, Hct 35.3 L, MCV 89.7, MCH 31.9 H, MCHC 35.5 H, RDW 14.7, Plt Count 189, MPV 10.2, Neut % (Auto) 67.8, Lymph % (Auto) 21.9, [place] % (Auto) 5.1, Eos % (Auto) 4.9, Baso % (Auto) 0.4, Neut # (Auto) 8.1 H, Lymph # (Auto) 2.6, [place] # (Auto) 0.6, Eos # (Auto) 0.6 H, Baso # (Auto) 0.0 10/31/19 06:25: Sodium 138, Potassium 3.5, Chloride 104, Carbon Dioxide 23, Anion Gap 14.5, BUN 7, Creatinine 0.80, Estimated Creat Clear 166, Estimated GFR 83, Est GFR ( Amer) 101, Glucose 108 H, Calcium 9.1, Total Bilirubin 0.4, AST 24, ALT 23, Alkaline Phosphatase 75, C-Reactive Protein 13.4 H, Total Protein 7.2, Albumin 4.0, Globulin 3.2, Albumin/Globulin Ratio 1.3 10/31/19 06:25: ESR 28 H Result diagrams: 10/31/19 06:25 10/31/19 06:25 Orders (Tests/Meds): ED MEDICATIONS Generic Name Dose Route Start Last Admin Trade Name Freq PRN Reason Stop Dose Admin Vancomycin HCl 2,000 mg/ 250 mls @ 125 mls/hr 10/31/19 06:33 10/31/19 06:44 Sodium Chloride IV 10/31/19 08:32 125 mls/hr ONCE ONE Administration Protocol Discontinued Medications Generic Name Dose Route Start Last Admin Trade Name Freq PRN Reason Stop Dose Admin Ketorolac Tromethamine 30 mg 10/31/19 06:31 10/31/19 06:44 Toradol 30mg/Ml Vial IV 10/31/19 06:32 30 mg ONCE ONE Administration Skin/Abscess/FB HPI - General Chief complaint: Skin/Abscess/Foreign Body Stated complaint: burning,swelling,reddness under right arm pit Time Seen by Provider: 10/31/19 06:15 Mode of Arrival: Ambulatory Source of Information: Patient, Medical Record Limitations: No Limitations Description of Symptoms (Recalled from ER Triage Doc. by RN): pt stated she felt a knot develop under her left arm in the axilla region on thursday and last night the area became red, hot and painful when moving affected arm., - History of Present Illness HPI narrative: progressive swelling and tender rt axilla with hx of similar issue
[2019-10-31 06:35] LABS: Basophils % 0.4 % (0.1-2.0); Eosinophils # 0.6 K/mm3 (0.0-0.4); Eosinophils % 4.9 % (0.1-12.0); Hematocrit 35.3 % (37.0-47.0); Hemoglobin 12.5 g/dL (12.2-16.2); Lymphocytes # 2.6 K/mm3 (0.7-4.5); Lymphocytes % 21.9 % (10-50); Mean Corpuscular HGB Conc 35.5 g/dL (31.8-35.4); Mean Corpuscular Hemoglobin 31.9 pg (27.0-31.2); Mean Corpuscular Volume 89.7 fl (81-99); Mean Platelet Volume 10.2 fl (7.4-10.4); Monocytes # 0.6 K/mm3 (0.1-1.0); Monocytes % 5.1 % (1.7-9.3); Neutrophils # 8.1 K/mm3 (1.8-7.8); Neutrophils % 67.8 % (37.0-80.0); Platelet Count 189 K/mm3 (142-424); Red Blood Count 3.93 M/mm3 (4.20-5.40); Red Cell Distribution Width 14.7 % (11.5-17.5)
[2019-10-31 06:39] LABS: Chloride 104 mmol/L (98-107); Potassium 3.5 mmoL/L (3.5-5.1); Sodium 138 mmol/L (136-145)
[2019-10-31 06:42] LABS: Alanine Aminotransferase 23 U/L (12-78); Albumin/Globulin Ratio 1.3 (1.1-1.8); Alkaline Phosphatase 75 U/L (38-126); Anion Gap 14.5 mEq/L (5-15); Aspartate Amino Transferase 24 U/L (14-36); Bilirubin,Total 0.4 mg/dl (0.2-1.3); Blood Urea Nitrogen 7 mg/dl (7-17); Calcium 9.1 mg/dl (8.4-10.2); Carbon Dioxide 23 mmol/L (22.0-30.0); Creatinine Clearance Estimated 166 mL/min (50-200); Estimated Glomerular Filt Rate 83 ml/min (>60); GFR (African American) 101 ML/MIN (>60); Globulin 3.2 g/dL (1.3-3.2); Glucose 108 mg/dl (74-100); Total Protein,Serum 7.2 g/dl (6.3-8.2)
[2019-10-31 06:48] LABS: C-Reactive Protein 13.4 mg/L (0-4)
[2019-10-31 07:04] LABS: Erythrocyte Sedimentation Rate 28 mm/hr (0-20)
--- NOTE | 2019-10-31 07:05 | PC.NURSE ---
spoke with jassi at [facility] to confirm they received the pts records. she confirmed they did and were about to review the pts info with the
--- NOTE | 2019-10-31 07:12 | PC.NURSE ---
Vanco dose per Theo in Pharmacy
--- NOTE | 2019-10-31 07:52 | PC.NURSE ---
No needs stated by patient at this time, offered refreshments and pt refused. Call monk given.
[2019-10-31 07:56] VITALS: BP 115/67; PULSE 91; RESP 18; TEMP 37.3; O2SAT 100
--- NOTE | 2019-10-31 08:05 | PC.NURSE ---
Called [facility] for an update and stated they would call us back.
--- NOTE | 2019-10-31 08:32 | PC.NURSE ---
Dr. Traylor spoke with Dr. Osman notifying him of pt and that pt has been informed to follow up in office with Dr. Osman.
[2019-10-31 09:18] VITALS: BP 114/87; PULSE 90; RESP 17; TEMP 37.2; O2SAT 100
== END 2019-10-31 09:19 | disposition home or self-care (01) ==
PROVIDERS: Emergency Provider Emergency Medicine; PCP Family Medicine
DX: L02.411 Cutaneous abscess of right axilla (principal); F17.210 Nicotine dependence, cigarettes, uncomplicated; Z90.49 Acquired absence of other specified parts of digestive tract
CPT/HCPCS: 80053; 85025; 85651; 86140; 96365; 96367; 96374; 96375; 99283; J3370

== ENCOUNTER 2019-12-19 16:37 | Emergency (ER) | payer MEDICAID, SELFPAY ==
[2019-12-19 16:38] VITALS: BP 111/76; PULSE 99; RESP 18; TEMP 36.7; O2SAT 99; BMI 37.5
--- NOTE | 2019-12-19 16:56 | HMH.EDGENADL ---
ED Disposition Clinical Impression: Chest pain Qualifiers: Chest pain type: unspecified Qualified Code(s): R07.9 - Chest pain, unspecified Disposition: Home, Self-Care Condition on Discharge: Good Instructions: DI for Atypical Chest Pain Referrals: Florentino Joe MD [Staff Physician] - 3 days Hill Traylor MD [Staff Physician] - 3 days - Critical Care Critical Care Time: No Attestation: On 12/19/19, the high probability of a clinically significant, sudden or life threatening deterioration of the following system(s) required my full and direct attention, intervention and personal management. The time I documented below is in addition to time spent performing reported procedures but includes the following listed in this critical care notation. Medical Decision Making - Medical Records Medical records reviewed: Yes: I reviewed the patient's medical records. - Charly Inquiry Pt receiving controlled substance: No Vital Signs: 12/19/19 16:38 12/19/19 17:39 Temperature 98.0 F Temperature Source Oral Pulse Rate [Radial] 99 H 80 Respiratory Rate 18 Blood Pressure [Right Arm] 111/76 129/63 Blood Pressure Mean [Right Arm] 87 85 Blood Pressure Source [Right Arm] Automatic Cuff Automatic Cuff Blood Pressure Position [Right Arm] Sitting Sitting 02 Sat by Pulse Oximetry 99 96 Oxygen Delivery Method Room Air Room Air - Lab Data Lab results reviewed: Yes: I reviewed the patient's lab results. Lab Results 12/19/19 17:40: WBC 10.1, RBC 4.30, Hgb 13.1, Hct 39.9, MCV 92.7, MCH 30.5, MCHC 32.9, RDW 15.0, Plt Count 214, MPV 9.1, Neut % (Auto) 61.7, Lymph % (Auto) 26.2, [place] % (Auto) 4.5, Eos % (Auto) 6.9, Baso % (Auto) 0.6, Neut # (Auto) 6.2, Lymph # (Auto) 2.7, [place] # (Auto) 0.5, Eos # (Auto) 0.7 H, Baso # (Auto) 0.1 12/19/19 17:40: Sodium 140, Potassium 4.1, Chloride 105, Carbon Dioxide 26, Anion Gap 13.1, BUN 7, Creatinine 0.80, Estimated Creat Clear 173, Estimated GFR 83, Est GFR ( Amer) 101, Glucose 98, Calcium 9.5, Total Bilirubin 0.3, AST 22, ALT 18, Alkaline Phosphatase 76, Troponin I < 0.01, Total Protein 7.4, Albumin 4.2, Globulin 3.2, Albumin/Globulin Ratio 1.3 12/19/19 17:40: Lipase 49 Result diagrams: 12/19/19 17:40 12/19/19 17:40 Orders (Tests/Meds): ORDERS Category Date Time Status Troponin I Q3H Lab 12/19/19 20:15 Ordered Troponin I Q3H Lab 12/19/19 23:15 Ordered EKG Request [ECG Request by /August] Stat Y 12/19/19 17:03 Ordered - Radiology Data #1 Image(s): Chest Image Reviewed: Yes I reviewed the patient's radiology image Preliminary Findings: Normal/NAD - ECG Data Tracing #1 EKG at 1730 shows a sinus rhythm with a rate of 82. No acute ST segment elevation or depression. No hyperacute T waves. Normal intervals. EKG interpreted by me. - DAVID Score for Non-Stemi Age of Patient: 30-39 years old Heart Rate: 90-109 bpm Systolic Blood Pressure: 100-119 mmHg Serum Creatinine: 0.80-1.19 mg/dl CHF Kill[place] Class: I-No CHF Other Risk Factors: None Non-Stemi Risk Score: 73 Medical Decision Narrative: Patient low risk david score. Pain started last night, troponin negative, no need for repeat given longevity of symptoms. Chest x-ray clear with no signs of pneumonia, pneumothorax. Suspect musculoskeletal pain versus possible bronchospasm given her smoking history. Discharged home with advised to follow-up outpatient with cardiology and primary care for further management. PERC negative General Adult HPI - General Chief complaint: PAIN Stated complaint: pain Time Seen by Provider: 12/19/19 16:56 Mode of Arrival: Ambulatory Limitations: No Limitations Description of Symptoms (Recalled from ER Triage Doc. by RN): States she had a sharp chest pain last night that went away and now is just a dull ache. No other symptoms - History of Present Illness HPI narrative: This is a 34-year-old female with no significant past medical history who presents to the e
--- NOTE | 2019-12-19 17:03 | ECG_ITS ---
APPROVED REPORT Exam: Resting ECG HR:82 bpm ECG Measurements Heart Rate 82 AXES OH 158 P 2 QRSd 74 QRS -8 QT 366 T 9 QTc 427 <Conclusion> Normal sinus rhythm Low voltage QRS Late r wave progression Abnormal ECG Electronically signed by : Rehan Prasad, 12/20/2019 20:21:48
--- NOTE | 2019-12-19 17:03 | XR_ITS ---
PROCEDURE: XR CHEST PORTABLE CLINICAL HISTORY: chest pain COMPARISON: CR CXR2V XR chest 2V from 05/14/2017 FINDINGS: The cardiomediastinal silhouette and pulmonary vascularity are within normal limits. The lungs are clear without infiltrates, suspicious nodules, or pleural effusions. No acute bony abnormalities. IMPRESSION: No acute findings. Dictated by: Jeff Da Silva MD 12/19/2019 17:52 Jeff Da Silva MD in [facility] 12/19/2019 17:52
[2019-12-19 17:39] VITALS: BP 129/63; PULSE 80; O2SAT 96
[2019-12-19 17:48] LABS: Basophils # 0.1 K/mm3 (0-0.2); Basophils % 0.6 % (0.1-2.0); Eosinophils # 0.7 K/mm3 (0.0-0.4); Eosinophils % 6.9 % (0.1-12.0); Hematocrit 39.9 % (37.0-47.0); Hemoglobin 13.1 g/dL (12.2-16.2); Lymphocytes # 2.7 K/mm3 (0.7-4.5); Lymphocytes % 26.2 % (10-50); Mean Corpuscular HGB Conc 32.9 g/dL (31.8-35.4); Mean Corpuscular Hemoglobin 30.5 pg (27.0-31.2); Mean Corpuscular Volume 92.7 fl (81-99); Mean Platelet Volume 9.1 fl (7.4-10.4); Monocytes # 0.5 K/mm3 (0.1-1.0); Monocytes % 4.5 % (1.7-9.3); Neutrophils # 6.2 K/mm3 (1.8-7.8); Neutrophils % 61.7 % (37.0-80.0); Platelet Count 214 K/mm3 (142-424); White Blood Count 10.1 K/mm3 (4.8-10.8)
[2019-12-19 17:51] LABS: Chloride 105 mmol/L (98-107)
[2019-12-19 17:52] LABS: Potassium 4.1 mmoL/L (3.5-5.1); Sodium 140 mmol/L (136-145)
[2019-12-19 17:54] LABS: Alanine Aminotransferase 18 U/L (12-78); Albumin Level 4.2 g/dl (3.5-5.0); Albumin/Globulin Ratio 1.3 (1.1-1.8); Alkaline Phosphatase 76 U/L (38-126); Anion Gap 13.1 mEq/L (5-15); Aspartate Amino Transferase 22 U/L (14-36); Bilirubin,Total 0.3 mg/dl (0.2-1.3); Blood Urea Nitrogen 7 mg/dl (7-17); Carbon Dioxide 26 mmol/L (22.0-30.0); Creatinine Clearance Estimated 173 mL/min (50-200); Estimated Glomerular Filt Rate 83 ml/min (>60); GFR (African American) 101 ML/MIN (>60); Globulin 3.2 g/dL (1.3-3.2); Lipase 49 U/L (23-300); Total Protein,Serum 7.4 g/dl (6.3-8.2)
[2019-12-19 17:55] LABS: Calcium 9.5 mg/dl (8.4-10.2); Glucose 98 mg/dl (74-100)
[2019-12-19 18:07] LABS: Troponin I < 0.01 ng/ml (0.00-0.034)
[2019-12-19 18:15] VITALS: BP 129/63; PULSE 80; RESP 18; TEMP 36.7; O2SAT 96
== END 2019-12-19 18:16 | disposition home or self-care (01) ==
PROVIDERS: Emergency Provider Emergency Medicine; PCP Family Medicine
DX: R07.9 Chest pain, unspecified (principal); F17.210 Nicotine dependence, cigarettes, uncomplicated; F33.1 Major depressive disorder, recurrent, moderate; Z90.49 Acquired absence of other specified parts of digestive tract
CPT/HCPCS: 71045; 80053; 83690; 84484; 85025; 93005; 99283

== ENCOUNTER 2020-11-19 12:50 | Emergency (ER) | payer MEDICAID, SELFPAY ==
[2020-11-19 15:50] VITALS: BP 00/00; PULSE 0; RESP 0; TEMP -17.7; TEMP 0
== END 2020-11-19 15:51 | disposition left against medical advice (07) ==
LOC: UTC 12:55
PROVIDERS: Emergency Provider Nurse Practitioner; PCP Family Medicine
DX: Z53.21 Procedure and treatment not carried out due to patient leaving prior to being seen by health care provider (principal)

== ENCOUNTER 2021-12-17 15:56 | Emergency (ER) | payer BC, MEDICAID, SELFPAY ==
[2021-12-17 15:58] VITALS: BP 106/67; PULSE 90; RESP 16; TEMP 36.8; O2SAT 98; BMI 37.5
--- NOTE | 2021-12-17 16:15 | CT_ITS ---
PROCEDURE INFORMATION: Exam: CT Abdomen And Pelvis With Contrast Exam date and time: 12/17/21 04:31 PM Age: 36 years old Clinical indication: Abdominal pain; Generalized TECHNIQUE: Imaging protocol: Computed tomography of the abdomen and pelvis with contrast. Radiation optimization: All CT scans at this facility use at least one of these dose optimization techniques: automated exposure control; mA and/or kV adjustment per patient size (includes targeted exams where dose is matched to clinical indication); or iterative reconstruction. Contrast material: ISOVUE; Contrast volume: 75 ml; Contrast route: IV; COMPARISON: TRANVAG US transvaginal 08/21/17 01:43 PM FINDINGS: Tubes, catheters and devices: None noted. Lungs: Lung bases appear clear. Heart: No significant coronary calcifications. No cardiomegaly. No significant pericardial effusion. Liver: Normal. No mass. Gallbladder and bile ducts: Cholecystectomy. No ductal dilation. Pancreas: Normal. No ductal dilation. Spleen: Normal. No splenomegaly. Adrenal glands: Normal. No mass. Kidneys and ureters: Normal. No hydronephrosis. Stomach and bowel: Pancolitis. No obstruction. No mucosal thickening. Appendix: No evidence of appendicitis. Intraperitoneal space: Unremarkable. No free air. No significant fluid collection. Retroperitoneal space: No significant retroperitoneal inflammatory changes are noted. Vasculature: Unremarkable. No abdominal aortic aneurysm. Lymph nodes: Unremarkable. No enlarged lymph nodes. Urinary bladder: Unremarkable as visualized. Reproductive: Unremarkable as visualized. Bones/joints: Unremarkable. No acute fracture. Soft tissues: Unremarkable. IMPRESSION: 1. Pancolitis. 2. Cholecystectomy.
[2021-12-17 16:40] LABS: Basophils # 0.1 K/mm3 (0-0.2); Basophils % 0.7 % (0.1-2.0); Eosinophils # 0.4 K/mm3 (0.0-0.4); Eosinophils % 2.9 % (0.1-12.0); Hematocrit 38.9 % (37.0-47.0); Lymphocytes # 1.5 K/mm3 (0.7-4.5); Lymphocytes % 11.2 % (10-50); Mean Corpuscular HGB Conc 33.6 g/dL (31.8-35.4); Mean Corpuscular Hemoglobin 30.6 pg (27.0-31.2); Mean Corpuscular Volume 91.1 fl (81-99); Mean Platelet Volume 9.2 fl (7.4-10.4); Monocytes # 0.8 K/mm3 (0.1-1.0); Monocytes % 5.7 % (1.7-9.3); Neutrophils # 10.9 K/mm3 (1.8-7.8); Neutrophils % 79.5 % (37.0-80.0); Platelet Count 234 K/mm3 (142-424); Red Blood Count 4.27 M/mm3 (4.20-5.40); Red Cell Distribution Width 15.3 % (11.5-17.5); White Blood Count 13.7 K/mm3 (4.8-10.8)
--- NOTE | 2021-12-17 16:40 | HMH.EDABDPAI ---
Discharge Plan Disposition Patient Disposition: Home, Self-Care Condition: Good Prescriptions Prescriptions: New levofloxacin 500 mg tablet 500 mg PO DAILY 5 Days Qty: 5 0RF promethazine 25 mg Tablet 25 mg PO BID PRN (Reason: Nausea) Qty: 12 12RF No Action sulfamethoxazole-trimethoprim 1 EACH tablet 1 each PO BID Qty: 14 0RF minocycline 100 MG tablet 100 mg PO BID Qty: 20 0RF ketorolac 10 MG tablet 10 mg PO Q6H 3 Days Qty: 12 0RF Referrals Follow up/Referrals: Provider,Referral, [Primary Care Provider] - See instructions Clinical Impressions Clinical Impression: Colitis Instructions Patient Instructions: DI for Acute Abdominal Pain Discharge ED Provider: Jackson Haney Abdominal Pain HPI General Chief Complaint: Abdominal Pain Stated Complaint: adm pains Time Seen by Provider: 12/17/21 16:40 Mode of Arrival: Ambulatory Source of Information: Patient Limitations: No Limitations Description of Symptoms (Recalled from ER Triage Doc. by RN): to ed per pvt car with c/o generalized abd pain, nausea, vomiting starting today. pt with hx of IBS. pt states pain getting progressively worse. History of Present Illness complaint: abdominal pain Onset (ago): hour(s) (6) Consistency: constant Location: diffuse Severity: moderate Severity scale (1-10): 8 Quality: cramping and aching Radiation: none Migration to: no migration Relieving factors: nothing Exacerbating factors: nothing Associated symptoms: nausea, vomiting and diarrhea Treatments prior to arrival: antacids Related Data Previous Rx's Medication Instructions Recorded ketorolac 10 mg tablet 10 mg PO Q6H 3 days #12 tabs 10/31/19 minocycline 100 mg tablet 100 mg PO BID #20 tabs 10/31/19 sulfamethoxazole 800 1 each PO BID #14 tabs 10/31/19 mg-trimethoprim 160 mg tablet levofloxacin 500 mg tablet 500 mg PO DAILY 5 days #5 tabs 12/17/21 promethazine 25 mg tablet 25 mg PO BID PRN Nausea #12 tabs 12/17/21 Allergies Allergy/AdvReac Type Severity Reaction Status Date / Time No Known Allergies Allergy Verified 10/31/19 06:20 PFSH PFSH Social History Smoking Status: Never smoker second hand exposure: Yes alcohol intake: never substance use type: denies use current occupational status: employed Travel in the last 8 weeks: None ROS Obtained: Yes All systems reviewed & no additional complaints except as documented Constitutional Constitutional: Denies chills, Denies fever(s) and Denies headache(s) Eyes Eyes: Denies change in vision ENT Ears, Nose, Mouth, and Throat: Denies headache(s) Cardiovascular Cardiovascular: Denies chest pain and Denies dyspnea Respiratory Respiratory: Denies dyspnea Gastrointestinal Gastrointestingal: Reports abdominal pain, diarrhea, nausea and vomiting Musculoskeletal Musculoskeletal: Denies joint stiffness and Denies joint swelling Integumentary/Breasts Skin/Breast: Denies rash Neurologic Neurologic: Denies headache(s) Physical Exam General General appearance: alert and in no apparent distress Eye Eye exam: Present normal appearance, PERRL and EOMI Respiratory Respiratory exam: Present normal lung sounds bilaterally; Absent respiratory distress Cardiovascular Cardiovascular exam: Present regular rate and normal rhythm Abdominal Exam Abdominal exam: Present soft; Absent distention, guarding, rebound or mass Abdominal tenderness: Present diffuse and moderate Extremities Exam Extremities exam: Present normal inspection Neurological Exam Neurological exam: Present alert, oriented X3 and normal gait; Absent motor sensory deficit Skin Skin exam: Present warm; Absent rash Medical Decision Making Medical Records Medical records reviewed: Yes I reviewed the patient's medical records. Charly Inquiry Pt receiving controlled substance: No Vital Signs: 12/17/21 15:58 12/17/21 17:30 Temperature 98.3 F Lenora
[2021-12-17 16:48] LABS: Chloride 104 mmol/L (98-107)
[2021-12-17 16:49] LABS: Potassium 4.2 mmoL/L (3.5-5.1); Sodium 138 mmol/L (136-145)
[2021-12-17 16:51] LABS: Alanine Aminotransferase 22 U/L (12-78); Aspartate Amino Transferase 36 U/L (14-36); Blood Urea Nitrogen 8 mg/dl (7-17); Creatinine Clearance Estimated 170 mL/min (50-200); Estimated Glomerular Filt Rate 82 ml/min (>60); GFR (African American) 99 ML/MIN (>60)
[2021-12-17 16:52] LABS: Albumin Level 4.4 g/dl (3.5-5.0); Albumin/Globulin Ratio 1.5 (1.1-1.8); Alkaline Phosphatase 108 U/L (38-126); Anion Gap 13.2 mEq/L (5-15); Calcium 8.8 mg/dl (8.4-10.2); Carbon Dioxide 25 mmol/L (22.0-30.0); Glucose 102 mg/dl (74-100); Lipase 48 U/L (23-300); Total Protein,Serum 7.4 g/dl (6.3-8.2)
[2021-12-17 16:55] LABS: Bilirubin,Total 0.1 mg/dl (0.2-1.3)
[2021-12-17 17:30] VITALS: BP 111/78; PULSE 80; RESP 18; O2SAT 99
[2021-12-17 17:44] LABS: Microscopic, Urine URINE MICROSCOPIC (MICROSCOPIC)
[2021-12-17 18:01] VITALS: BP 90/61; O2SAT 92
[2021-12-17 18:05] LABS: Appearance,Urine CLEAR (Clear); Bilirubin,Urine Negative (Negative); Blood, Urine Negative (Negative); Color,Urine YELLOW (Yellow); Glucose,Urine (UA) Negative (Negative); Ketones,Urine Negative (Negative); Leukocyte Esterase,Urine TRACE (Negative); Nitrate,Urine Negative (Negative); Protein,Urine Negative (Negative); Specific Gravity, Urine <= 1.005 (1.005-1.030); Urobilinogen,Urine 0.2 EU/dl (0.2)
[2021-12-17 18:14] LABS: Bacteria,Urine Trace /lpf; WBC,Urine Occasional #/hpf (0-3)
[2021-12-17 18:41] VITALS: BP 105/66; PULSE 83; RESP 20; TEMP 36.8; O2SAT 96
== END 2021-12-17 18:44 | disposition home or self-care (01) ==
PROVIDERS: Emergency Provider Emergency Medicine
DX: K51.00 Ulcerative (chronic) pancolitis without complications (principal); Z79.899 Other long term (current) drug therapy
CPT/HCPCS: 74177; 80053; 81001; 83690; 85025; 96361; 96374; 96375; 99285; J2405; Q9967